=== PATIENT | female | born 1985 | race Caucasian/White ===

== ENCOUNTER 2017-11-08 23:18 | Emergency (ER) | payer OTHER ==
[2017-11-09] MEDS: diphenhydrAMINE INJ 50MG/ML VIAL (J1200) IM (01:26)
[2017-11-09] MEDS: HALOPERIDOL 5 MG/ML VIAL (J1630) IM (01:26)
[2017-11-09] MEDS: LORazepam 2 MG/ML VIAL (J2060) IM (01:26)
[2017-11-09 01:30] LABS: BASO # 0.1 10^3/uL (0.0-0.2); BASO % 0.9 % (0.0-1.0); EOS # 0.3 10^3/uL (0.0-0.50); EOS % 2.7 % (0.0-3.0); HEMATOCRIT 45.3 % (36.0-47.0); HEMOGLOBIN 15.1 g/dl (12.0-15.5); IMMATURE GRANULOCYTE % 0.5 % (0-3.0); LYMPH # 3.6 10^3/uL (1.5-4.5); LYMPH % 33.8 % (24.0-44.0); MEAN CORPUSCULAR HEMOGLOBIN 30.3 pg (27.0-33.0); MEAN CORPUSCULAR HGB CONC 33.3 g/dl (32.0-36.5); MONO # 0.9 10^3/uL (0.0-0.8); MONO % 8.2 % (0.0-5.0); NEUTROPHILS # 5.7 10^3/uL (1.8-7.7); NEUTROPHILS % 53.9 % (36.0-66.0); PLATELET COUNT, AUTOMATED 368 10^3/uL (150-450); RED BLOOD COUNT 4.98 10^6/uL (4.00-5.40); WHITE BLOOD COUNT 10.6 10^3/uL (4.0-10.0)
[2017-11-09 01:44] LABS: CONTROL LINE HCG INT CTR LINE PRESENT; HCG, SERUM QUALITATIVE NEGATIVE (NEGATIVE)
[2017-11-09 01:55] LABS: ALBUMIN 4.2 GM/DL (3.2-5.2); ALKALINE PHOSPHATASE 47 U/L (45-117); ALT/SGPT 31 U/L (12-78); ANION GAP 16 MEQ/L (8-16); AST/SGOT 25 U/L (7-37); BILIRUBIN,DIRECT < 0.1 MG/DL (0.0-0.2); BILIRUBIN,TOTAL 0.2 MG/DL (0.2-1.0); BLOOD UREA NITROGEN 9 MG/DL (7-18); CALCIUM LEVEL 8.2 MG/DL (8.5-10.1); CARBON DIOXIDE LEVEL 18 MEQ/L (21-32); CHLORIDE LEVEL 112 MEQ/L (98-107); CPK CREATINE PHOSPHOKINASE 257 U/L (26-192); GLOMERULAR FILTRATION RATE > 60.0 (>60); GLUCOSE, FASTING 119 MG/DL (70-100); POTASSIUM SERUM 3.9 MEQ/L (3.5-5.1); SODIUM LEVEL 146 MEQ/L (136-145); TOTAL PROTEIN 8.4 GM/DL (6.4-8.2); TROPONIN I < 0.02 NG/ML (< 0.10)
[2017-11-09 01:56] LABS: ETHYL ALCOHOL (ETHANOL) 0.327 % (0.000-0.010)
[2017-11-09 02:00] LABS: CK-MB VALUE MASS 2.3 NG/ML (<3.6); MB/CK RELATIVE INDEX 0.89 (< OR =4)
[2017-11-09] MEDS: LORazepam 2 MG/ML VIAL (J2060) IV (03:56)
[2017-11-09] MEDS: DERMABOND TOPICAL SKIN ADHESIVE TOP (10:15)
== END 2017-11-09 11:25 | disposition home or self-care (01) ==
LOC: M ED 23:18
DX: S01.111A Laceration without foreign body of right eyelid and periocular area, initial encounter (principal); F10.129 Alcohol abuse with intoxication, unspecified; X58.XXXA Exposure to other specified factors, initial encounter; Y92.410 Unspecified street and highway as the place of occurrence of the external cause; Y93.01 Activity, walking, marching and hiking; Y99.9 Unspecified external cause status
CPT/HCPCS: J1200

== ENCOUNTER 2018-10-24 00:57 | Emergency (ER) | payer OTHER ==
[~2018-10-24] VITALS: Ht 170.2 cm; Wt 88.0 kg
[2018-10-24 01:31] LABS: BASO # 0.1 10^3/uL (0.0-0.2); BASO % 0.7 % (0.0-1.0); EOS # 0.4 10^3/uL (0.0-0.50); EOS % 4.8 % (0.0-3.0); HEMATOCRIT 45.1 % (36.0-47.0); HEMOGLOBIN 15.2 g/dl (12.0-15.5); LYMPH # 3.9 10^3/uL (1.5-4.5); LYMPH % 42.1 % (24.0-44.0); MEAN CORPUSCULAR HEMOGLOBIN 31.1 pg (27.0-33.0); MEAN CORPUSCULAR HGB CONC 33.7 g/dl (32.0-36.5); MEAN CORPUSCULAR VOLUME 92.2 fl (80.0-96.0); MONO # 0.9 10^3/uL (0.0-0.8); MONO % 9.2 % (0.0-5.0); NEUTROPHILS % 42.9 % (36.0-66.0); PLATELET COUNT, AUTOMATED 280 10^3/uL (150-450); RED BLOOD COUNT 4.89 10^6/uL (4.00-5.40); WHITE BLOOD COUNT 9.2 10^3/uL (4.0-10.0)
[2018-10-24] MEDS ORDERED: HALOPERIDOL 5 MG/ML VIAL (J1630) As Ordered ONE (01:33)
[2018-10-24] MEDS ORDERED: LORazepam 2 MG/ML VIAL (J2060) As Ordered ONE (01:34)
[2018-10-24] MEDS ORDERED: HALOPERIDOL 5 MG/ML VIAL (J1630) IM STA (01:35)
[2018-10-24] MEDS ORDERED: LORazepam 2 MG/ML VIAL (J2060) IV STA (01:35)
[2018-10-24 01:40] LABS: HCG, SERUM QUALITATIVE NEGATIVE (NEGATIVE)
[2018-10-24] MEDS ORDERED: MIDAZOLAM INJ 5 MG/ML VIAL (J2250) As Ordered ONE (01:42)
[2018-10-24] MEDS ORDERED: MIDAZOLAM INJ 5 MG/ML VIAL (J2250) IM ONE (01:45)
[2018-10-24] MEDS ORDERED: NS 1,000 ML IV ONE ×2 (01:45→05:30)
[2018-10-24 01:59] LABS: ACETAMINOPHEN LEVEL < 2.0 UG/ML (10.0-30.0); ALBUMIN 3.8 GM/DL (3.2-5.2); ALT/SGPT 32 U/L (12-78); BILIRUBIN,DIRECT < 0.1 MG/DL (0.0-0.2); BILIRUBIN,TOTAL < 0.1 MG/DL (0.2-1.0); BLOOD UREA NITROGEN 19 MG/DL (7-18); CALCIUM LEVEL 8.5 MG/DL (8.5-10.1); CARBON DIOXIDE LEVEL 22 MEQ/L (21-32); CHLORIDE LEVEL 106 MEQ/L (98-107); ETHYL ALCOHOL (ETHANOL) 0.434 % (0.000-0.010); GLOMERULAR FILTRATION RATE > 60.0 (>60); GLUCOSE, FASTING 83 MG/DL (70-100); POTASSIUM SERUM 4.1 MEQ/L (3.5-5.1); SALICYLATE LEVEL < 1.7 MG/DL (5.0-30.0); SODIUM LEVEL 140 MEQ/L (136-145); TOTAL PROTEIN 8.2 GM/DL (6.4-8.2)
[2018-10-24 02:01] LABS: AMPHETAMINES LEVEL URINE NEGATIVE (NEGATIVE); BARBITURATES URINE NEGATIVE (NEGATIVE); BENZODIAZEPINES URINE NEGATIVE (NEGATIVE); CANNABINOIDS URINE NEGATIVE (NEGATIVE); COCAINE METABOLITE URINE NEGATIVE (NEGATIVE); METHADONE URINE NEGATIVE (NEGATIVE); OPIATES URINE NEGATIVE (NEGATIVE); PHENCYCLIDINE URINE NEGATIVE (NEGATIVE)
[2018-10-24] MEDS ORDERED: LORazepam 2 MG TAB PO PRN (07:15)
[2018-10-24] MEDS ORDERED: FOLIC ACID 1 MG TAB PO SCH (09:00)
[2018-10-24] MEDS ORDERED: MULTIVITAMINS/MINERALS THERAP 1 TAB PO SCH (09:00)
[2018-10-24] MEDS ORDERED: THIAMINE 100 MG TAB PO SCH (09:00)
[2018-10-24] MEDS ORDERED: CYMB1CAP5 PO (09:19)
[2018-10-24] MEDS ORDERED: NALT50TA4 PO (09:19)
--- NOTE | 2018-10-24 10:28 | ECGEPIP ---
[facility] - ED Test Date: 2018-10-24 Pat Name: GERALDINE LECHUGA Department: Room: - Gender: Female [employer] Super[employer]: : 1985 Requested By: DECLAN Faustin Order Number: [id number] Reading MD: Matt Rios Measurements Intervals [place] Rate: 123 P: 45 UT: 139 QRS: 35 QRSD: 83 T: 41 QT: 302 QTc: 432 Interpretive Statements SINUS TACHYCARDIA Comparison tracing not on file Electronically Signed on 10-24-2018 10:28:06 EDT by Matt Rios
[2018-10-24] MEDS ORDERED: OXAZEPAM 15 MG CAP PO ONE (14:00)
[2018-10-24 16:38] VITALS: BP 124/98
== END 2018-10-24 19:36 | disposition home or self-care (01) ==
LOC: M ED 00:57
DX: F10.129 Alcohol abuse with intoxication, unspecified (principal); R00.0 Tachycardia, unspecified; Z79.899 Other long term (current) drug therapy
CPT/HCPCS: 36415; 51701; 80048; 80076; 80307; 84443; 84703; 85025; 93005; 93041; 94760; 96372; 96374; 99285; G0480; J1630; J2060; J2250